=== PATIENT | female | born 1980 | race Caucasian/White ===

== ENCOUNTER 2019-02-08 16:25 | Outpatient (CLI) | payer BC ==
--- NOTE | 2019-02-08 18:43 | MRI ---
MRI CERVICAL SPINE: 02/08/2019 HISTORY: Neck pain with right upper extremity radiculopathy and numbness of the right first and second digits. COMPARISON: None. TECHNIQUE: Multiplanar, multisequence MR imaging of the cervical spine without contrast. FINDINGS: The sagittal STIR imaging demonstrates no focal area of osseous marrow edema. C2-C3: Unremarkable. C3-C4: Unremarkable. C4-C5: Unremarkable. C5-C6: Minimal disk bulge and partial effacement of the ventral thecal sac with minimal central gale l stenosis and no neural foraminal stenosis. C6-C7: There is a right paracentral disk herniation causing significant lateral right-sided central canal stenosis with significant right neural foraminal stenosis. Disk herniation in the right parace ntral region measures approximately 5 mm in AP dimension. No significant left neural foraminal steno sis. C7-T1: No significant neural foraminal stenosis on either side. There is disk space narrowing, disk desiccation, and mild disk bulge with minimal central canal stenosis. No abnormal signal intensity is identified within the cervical cord. IMPRESSION: Right-sided paracentral disk herniation at C6-C7 with associated lateral central canal stenosis and n eural foraminal stenosis on the right. POS: PANFILO
== END 2019-02-08 16:26 | disposition home or self-care (01) ==
LOC: SCSMRI 16:25
PROVIDERS: ATTEND Neurological Surgery
DX: M50.123 Cervical disc disorder at C6-C7 level with radiculopathy (principal); M48.02 Spinal stenosis, cervical region
CPT/HCPCS: 72141

== ENCOUNTER 2019-02-27 08:29 | Emergency (ER) | payer BC ==
[2019-02-27] MEDS ORDERED: Ketorolac Tromethamine 60 MG/2 ML VIAL ONE (08:55)
[2019-02-27 09:31] LABS: #Basophils 0.1 thou/uL (0.0-0.2); #Eosinphils 0.1 thou/uL (0.0-0.7); #Lymphocytes 1.9 thou/uL (1.20-3.40); #Monocytes 0.5 thou/uL (0.11-0.59); #Neutrophils 4.4 thou/uL (1.40-6.50); %Eosinophils 1.5 % (0.0-10.0); %Lymphocytes 27.4 % (21.0-51.0); %Monocytes 6.9 % (0.0-10.0); %Neutrophils 63.2 % (42.0-75.0); Hemoglobin 14.1 g/dL (12.0-16.0); Mean Corpuscular HGB CONC 32.9 g/dL (32.0-36.0); Mean Corpuscular Hemoglobin 27.7 pg (27.0-31.0); Mean Platelet Volume 8.3 fL (7.4-10.4); Platelet Count 205 thou/uL (130-400); Red Blood Cell (RBC) Count 5.09 mill/uL (4.20-5.40)
[2019-02-27 09:32] LABS: BHCG - Serum Negative (NEGATIVE)
[2019-02-27 09:33] LABS: Pregs Control Background? CLEAR/WHITE (CLR/WHITE); Pregs Control Bar Appear? YES (CONTROL BAR)
[2019-02-27 09:40] LABS: ALT (SGPT) 12 U/L (8-55); AST (SGOT) 13 U/L (5-34); Albumin 4.2 g/dL (3.5-5.0); Alkaline Phosphatase 59 U/L (40-150); Anion Gap 11 mmol/L (10-20); BUN (Urea Nitrogen) 19 mg/dL (7.0-18.7); Bilirubin, Total 0.6 mg/dL (0.2-1.2); CK (CPK) 77 U/L (29-168); Calc. Creatinine Clearance 0 mL/min (70-130); Calcium 9.3 mg/dL (7.8-10.44); Carbon Dioxide 25 mmol/L (22-29); Chloride 107 mmol/L (98-107); Estimated GFR-MDRD 71; Globulin 3.3 g/dL (2.4-3.5); Glucose 98 mg/dL (70-105); Potassium 4.4 mmol/L (3.5-5.1); Protein, Total 7.5 g/dL (6.0-8.3); Sodium 139 mmol/L (136-145)
== END 2019-02-27 10:11 | disposition home or self-care (01) ==
LOC: SCSER 08:29
DX: M50.223 Other cervical disc displacement at C6-C7 level (principal); R55 Syncope and collapse; Z79.899 Other long term (current) drug therapy
CPT/HCPCS: 36415; 80053; 82550; 84484; 84703; 85025; 93005; 96372; J1885